=== PATIENT | female | born 1955 | race Caucasian/White ===

== ENCOUNTER 2019-01-31 15:52 | Emergency (ER) | payer MEDICAID ==
[~2019-01-31] VITALS: Ht 152.4 cm; Wt 50.3 kg
[2019-01-31 15:55] VITALS: BP_SYST 124
[2019-01-31] MEDS ORDERED: KETOROLAC TROMETHAMINE 30 MG VIAL IVP ONE (18:15)
[2019-01-31 19:31] LABS: CALCIUM 8.4 mg/dL (8.4-11.0); CREATININE 0.48 mg/dL (0.55-1.30); POTASSIUM 3.6 mmol/L (3.5-5.1)
[2019-01-31 19:36] LABS: TOTAL BILIRUBIN 0.5 mg/dL (0.0-1.0)
[2019-01-31 19:49] LABS: HEMATOCRIT 40.3 % (36-48); HEMOGLOBIN 13.5 g/dL (12.0-16.0); MEAN CORPUSCULAR HEMOGLOBIN 26 pg (27-31); MEAN CORPUSCULAR HGB CONC 34 % (32-36); MEAN CORPUSCULAR VOLUME 79 fL (79.0-98.0); RED BLOOD CELL COUNT(AUTO) 5.12 MIL/uL (4.2-6.2); WHITE BLOOD COUNT (AUTO) 8.9 K/uL (4.8-10.8)
[2019-01-31 19:50] LABS: BASOPHILS % (AUTO) 0.3 % (0.0-2.0); EOSINOPHILS # (AUTO) 0.1 K/uL (0.0-0.4); EOSINOPHILS % (AUTO) 0.7 % (0.0-4.0); LYMPHOCYTES # (AUTO) 1.7 K/uL (1.0-5.5); LYMPHOCYTES % (AUTO) 19.3 % (20.5-51.5); MONOCYTES # (AUTO) 0.8 K/uL (0.0-1.0); MONOCYTES % (AUTO) 8.6 % (1.7-9.3); NEUTROPHILS # (AUTO) 6.3 K/uL (1.8-7.7); NEUTROPHILS % (AUTO) 71.1 % (40.0-70.0); PLATELET COUNT (AUTO) 220 K/uL (130-430); RED CELL DISTRIBUTION WIDTH 13.8 % (9.0-15.0)
[2019-01-31 20:49] VITALS: BP_SYST 124
[2019-01-31] MEDS ORDERED: NORMAL SALINE 5 ML DISP.SYRIN IVF SCH (22:00)
== END 2019-01-31 20:45 | disposition home or self-care (01) ==
LOC: SED 15:52
DX: R10.2 Pelvic and perineal pain (principal); R19.00 Intra-abdominal and pelvic swelling, mass and lump, unspecified site
CPT/HCPCS: 36415; 76856-TC; 80053; 85025; 99284